=== PATIENT | male | born 1960 | race Caucasian/White ===

== ENCOUNTER 2019-03-16 16:45 | Emergency (ER) | payer MEDICAID ==
[~2019-03-16] VITALS: Ht 167.6 cm; Wt 77.6 kg
[2019-03-16 16:45] VITALS: BP_SYST 159
[2019-03-16 18:04] VITALS: BP_SYST 159
== END 2019-03-16 18:00 | disposition home or self-care (01) ==
LOC: SED 16:45
DX: S30.812A Abrasion of penis, initial encounter (principal); I10 Essential (primary) hypertension; Z86.73 Personal history of transient ischemic attack (TIA), and cerebral infarction without residual deficits; X58.XXXA Exposure to other specified factors, initial encounter; Y93.89 Activity, other specified; Y92.89 Other specified places as the place of occurrence of the external cause; Y99.8 Other external cause status
CPT/HCPCS: 99283

== ENCOUNTER 2020-07-12 16:07 | Emergency (ER) | payer MEDICARE, MEDICAID ==
[~2020-07-12] VITALS: Ht 167.6 cm; Wt 81.2 kg
[2020-07-12] MEDS ORDERED: KETOROLAC TROMETHAMINE 60 MG/2 ML VIAL IM ONE (16:30)
--- NOTE | 2020-07-12 16:30 | NUR ---
Patient to ER bed 7 to gown for evaluation. Side rails up. Report given to Jarred SPARKS.
[2020-07-12 16:32] VITALS: BP_SYST 152
--- NOTE | 2020-07-12 16:32 | NUR ---
ER at bedside examining patient.
--- NOTE | 2020-07-12 16:35 | NUR ---
Pt came to ER for R hip pain, pt rates pain 6/10. Pt resting in gurney, VSS, no distress at this time, uses walker at home to ambulate.
[2020-07-12] MEDS ORDERED: COR6.25 PO (16:42)
[2020-07-12] MEDS ORDERED: tamsulosin PO (16:42)
[2020-07-12] MEDS ORDERED: CAT.1 PO (16:42)
[2020-07-12] MEDS ORDERED: LIP40 PO (16:42)
[2020-07-12] MEDS ORDERED: LEVE500T9 PO (16:42)
[2020-07-12] MEDS ORDERED: LISI-600 PO (16:42)
--- NOTE | 2020-07-12 16:42 | NUR ---
Medication reconciliation completed with information provided by pt. Any prior medication reconciliation on file was reviewed and corrected.
[2020-07-12 17:26] VITALS: BP_SYST 133
--- NOTE | 2020-07-12 17:27 | NUR ---
Patient given written and verbal discharge instructions and verbalizes understanding. ER MD discussed with patient the results and treatment provided. Patient in stable condition. ID arm band removed. Rx of Motrin given. Patient educated on pain management and to follow up with PMD. Pain Scale 2/10. Opportunity for questions provided and answered. Medication side effect fact sheet provided.
== END 2020-07-12 17:26 | disposition home or self-care (01) ==
LOC: SED 16:07
DX: M46.1 Sacroiliitis, not elsewhere classified (principal); I10 Essential (primary) hypertension; Z79.899 Other long term (current) drug therapy
CPT/HCPCS: 96372; 99283; J1885